=== PATIENT | female | born 1975 | race Caucasian/White ===

== ENCOUNTER 2021-11-24 05:39 | Emergency (ER) | payer BC, OTHER ==
--- OUTSIDE RECORDS SUMMARY | 2021-11-24 05:41 | XMS REPORT | Continuity of Care Document ---
:1975 Author Organization [facility] t Address [address] [place] [address] Dr. Canales [address] [place] [id number] Care Team Providers Name Role Phone Mary Quiñones Attending Clinician Unavailable SARAH Attending Clinician Unavailable Maria D Aleman Attending Clinician [phone] [id number] Attending Clinician Unavailable SARAH Admitting Clinician Unavailable [id number] Admitting Clinician Unavailable Payers Payer Name Policy Type Policy Number Effective Date Expiration Date S ource Problems This patient has no known problems. Allergies, Adverse Reactions, Alerts This patient has no known allergies or adverse reactions. Medications This patient has no known medications. Procedures This patient has no known procedures. Encounters Start End Encounter Admission Attending Care Care Encounter Source Date/Time Date/Time Type Type Clinicians Facility Department ID 2021-05-06 Outpatient YVETTE Quiñones [facility] [id number] [facility] [address] 13:49:02 Mary [id number] [facility] ent Clinics 2020-11-13 2020-11-13 Outpatient JENNINGS_B [facility] [id number] 01:18:00 01:18:00 805 [facility] 2020-11-12 2020-11-12 Outpatient [facility]ENNINGS_B [facility] [id number] [facility] [address] 03:07:00 03:07:00 804 [facility] 2020-11-02 2020-11-02 Outpatient [facility]ENNINGS_B [facility] [address] 12:41:00 12:41:00 725 [facility] 2020-09-28 2020-09-28 Outpatient [facility] [address] 12:33:00 12:33:00 620 [facility] 2020-08-25 2020-08-25 Outpatient [facility] [id number] 01:02:00 01:02:00 517 [facility] 2020-08-19 2020-08-19 Outpatient [facility]ENNINGS_B [facility] [id number] 05:14:00 05:14:00 511 [facility] 2020-08-19 2020-08-19 Outpatient Love, [facility] [id number] 00:00:00 00:00:00 Maria D [id number] 2020-07-29 2020-07-29 Outpatient DICLEMENTE_ [facility] [id number] 06:46:00 06:46:00 M1 503 [facility] 2020-07-29 2020-07-29 Outpatient DICLEMENTE_ [facility] [id number] 06:46:00 06:46:00 M1 510 [facility] Results This patient has no known results.
[2021-11-24] MEDS ORDERED: MORPHINE 4 MG/ML SYR ONE (06:33)
[2021-11-24] MEDS ORDERED: ONDANSETRON 4 MG/2 ML VIAL ONE (06:33)
[2021-11-24] MEDS ORDERED: NA CHLORIDE 0.9% 1,000 ML ONE (06:33)
[2021-11-24 06:53] LABS: Absolute Lymphocytes (CBC) 2.5 K/uL (0.7-4.9); Hematocrit 35.8 % (36.0-45.0); Lymphocytes % 21.7 % (15.3-44.8); MCV 81.9 fL (80-100); MPV 8.2 fL (7.6-11.3); RBC Red Blood Cell Count 4.37 M/uL (3.86-4.86)
[2021-11-24 06:55] LABS: Protime INR 0.97
[2021-11-24 07:08] LABS: ALT/SGPT 23 U/L (12-78); AST/SGOT 12 U/L (15-37); Albumin 3.4 g/dL (3.4-5.0); Alkaline Phosphatase 69 U/L (45-117); BUN Blood Urea Nitrogen 13 mg/dL (7-18); Bicarbonate 26 mmol/L (21-32); Bilirubin Total 0.2 mg/dL (0.2-1.0); Creatine Phosphokinase 62 U/L (26-192); Glomerular Filtration Rate 102 ml/min (=/>90); Glucose Level 109 mg/dL (74-106); Magnesium 1.5 mg/dL (1.8-2.4); NT PRO-BNP 76 pg/mL (<125); Potassium 3.7 mmol/L (3.5-5.1); Protein, Total 7.3 g/dL (6.4-8.2); Sodium Level 137 mmol/L (136-145); Troponin High Sensitivity 3.4 pg/mL (<58.9)
[2021-11-24 07:19] LABS: Bilirubin Direct < 0.1 mg/dL (0-0.2)
--- NOTE | 2021-11-24 07:48 | RAD REPORT ---
EXAM DESCRIPTION: RAD - Chest Single View - 11/24/2021 6:57 am CLINICAL HISTORY: CONGESTION COMPARISON: None TECHNIQUE: AP portable chest image was obtained 11/24/2021 6:57 am . FINDINGS: No focal mass or consolidation. Interstitial markings are accentuated by shallow inspirati on, body habitus and under penetrated film technique affects. A mild interstitial edema or infiltrate could be masked. Heart and vasculature are normal. No measurable pleural effusion and no pneumothorax. No acute bony abnormality seen. No acute aortic findings suspected. IMPRESSION: No focal mass or consolidation. Baseline interstitial pattern and exam limitations could mask early interstitial edema or infiltrate.
--- NOTE | 2021-11-24 07:49 | RAD REPORT ---
EXAM DESCRIPTION: RAD - Humerus Left - 11/24/2021 6:57 am CLINICAL HISTORY: Arm and shoulder pain COMPARISON: None. FINDINGS: No fracture is identified. There is no dislocation or periosteal reaction noted. No forei gn body or other soft tissue abnormality. IMPRESSION: Negative left humerus examination for acute finding. Left shoulder joint degenerative changes are separately detailed.
--- NOTE | 2021-11-24 07:49 | RAD REPORT ---
EXAM DESCRIPTION: RAD - Forearm Left - 11/24/2021 6:57 am CLINICAL HISTORY: PAIN COMPARISON: None. FINDINGS: No fracture is identified. There is no dislocation or periosteal reaction noted. No foreign body or other soft tissue abnormality. IMPRESSION: Negative left forearm examination.
--- NOTE | 2021-11-24 07:49 | RAD REPORT ---
EXAM DESCRIPTION: RAD - Shoulder Left 2 View - 11/24/2021 6:57 am CLINICAL HISTORY: PAIN COMPARISON: No comparisons TECHNIQUE: Internal and external rotation views of the left shoulder were obtained. FINDINGS: There is no fracture or dislocation. Mild inferiorly directed acromion and clavicle spurs are seen at the AC joint. No AC joint separation. Acromial humeral joint space within normal range. N o abnormal soft tissue calcifications. IMPRESSION: Mild left shoulder degenerative change as detailed.
--- NOTE | 2021-11-24 07:50 | RAD REPORT ---
EXAM DESCRIPTION: US - UPPER EXTREMITY VENOUS UNILATE - 11/24/2021 7:32 am CLINICAL HISTORY: Left arm pain and/or swelling COMPARISON: None. TECHNIQUE: Real-time sonographic evaluation of the left upper extremity deep venous systems was perf ormed. FINDINGS: Normal compressibility, flow augmentation, phasic flow and spontaneous flow are identified in the left upper extremity deep venous system. No intraluminal filling defects seen. Internal jugul ar and subclavian veins are normal as well. IMPRESSION: No DVT in the left upper extremity.
[2021-11-24] MEDS ORDERED: DIAZEPAM 5 MG TABLET ONE (07:52)
[2021-11-24] MEDS ORDERED: MORPHINE 2 MG/ML SYR ONE (07:53)
[2021-11-24 07:59] LABS: Urine Blood Negative (Negative); Urine Glucose Negative (Negative); Urine Protein Negative (Negative); Urine Specific Gravity 1.025 (1.005-1.030); Urine pH 5.5 (5.0-7.0)
--- NOTE | 2021-11-24 08:23 | ER ---
Nurse's Notes [facility] Name: Daniela Leonard Age: 46 yrs Sex: Female : 1975 Arrival Date: 11/24/2021 Time: 05:43 Bed 10 Private MD: Diagnosis: Pain in left shoulder Presentation: 11/24 06:01 Chief complaint: Patient states: Pain to left shoulder, radiating down left arm that lp1 began yesterday evening; States "it feels like something is wrapped tight around my arm"; Denies any trauma or falls; States hx of unknown nerve issue. Coronavirus screen: At this time, the client does not indicate any symptoms associated with coronavirus-19. Ebola Screen: No symptoms or risks identified at this time. Initial Sepsis Screen: Does the patient meet any 2 criteria? No. Patient's initial sepsis screen is negative. Does the patient have a suspected source of infection? No. Patient's initial sepsis screen is negative. Risk Assessment: Do you want to hurt yourself or someone else? Patient reports no desire to harm self or others. Onset of symptoms was November 24, 2021. 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 lp1 Historical: - Allergies: 06:05 latanoprost; lp1 06:05 Timolol; lp1 06:05 Combigan; lp1 - Home Meds: 06:05 dorzolamide ophthalmic (eye) [Active]; gabapentin 900 mg BID oral [Active]; metformin lp1 1,000 mg Oral tr24 1 tab 2 times per day [Active]; venlafaxine 225 mg oral tr24 1 tab once daily [Active]; lisinopril 2.5 mg Oral tab 1 tab once daily [Active]; Lamictal 150 mg Oral tab 1 tab once daily [Active]; - PMHx: 06:05 Ocular HTN; Hypertensive disorder; Diabetes mellitus; Anxiety; Depressive disorder; lp1 Nerve Pain; - PSHx: 06:05 Cholecystectomy; Appendectomy; Fallopian tube removal; lp1 - Immunization history:: Adult Immunizations up to date. - Social history:: Smoking status: Patient denies any tobacco usage or history of. Screenin:04 Abuse screen: Denies threats or abuse. Denies injuries from another. Nutritional lp1 screening: No deficits noted. Tuberculosis screening: No symptoms or risk factors identified. Fall Risk None identified. Assessment: 06:03 General: Appears uncomfortable, Behavior is crying, restless. Pain: Complains of pain lp1 in left arm Pain currently is 9 out of 10 on a pain scale. Quality of pain is described as pressure. Neuro: Level of Consciousness is awake, alert, obeys commands, Oriented to person, place, time, situation, Gait is steady, Intact. Cardiovascular: Patient's skin is warm and dry. Respiratory: Respiratory effort is even, unlabored. GI: No signs and/or symptoms were reported involving the gastrointestinal system. : No signs and/or symptoms were reported regarding the genitourinary system. EENT: No signs and/or symptoms were reported regarding the EENT system. Derm: Skin is intact, Skin is dry, Skin is red, Skin temperature is hot Patient reports recent long sun exposure from beach. Musculoskeletal: Range of motion: intact in all extremities. 08:20 Reassessment: Patient appears in no apparent distress at this time. Patient and/or iw family updated on plan of care and expected duration. Pain level reassessed. Patient is alert, oriented x 3, equal unlabored respirations, skin warm/dry/pink. Patient states feeling better. Vital Signs: 06:01 BP 168 / 87; Pulse 101; Resp 18; Temp 98(TE); Pulse Ox 98% on R/A; Weight 124.74 kg lp1 (R); Height 5 ft. 6 in. (167.64 cm); Pain 9/10; 06:01 Body Mass Index 44.39 (124.74 kg, 167.64 cm) lp1 ED Course: 05:43 Patient arrived in ED. bp1 05:52 Lb Rajan MD is Attending Physician. 7 06:01 Emilee Miller, CLARA is Primary Nurse. lp1 06:01 Arm band placed on. lp1 06:03 Triage completed. lp1 06:08 Patient has correct armband on for positive identification. lp1 06:42 Missed attempt(s): 20 gauge in right antecubital area. Inserted saline lock: 22 gauge lp1 in right forearm, using aseptic technique. Blood collected. 06:59 XRAY Chest (1 view) In Process Unspecified. EDMS 06:59 Shoulder Left (2 View) XRAY In Process Unspecified. EDMS 06:59 Humerus Left XRAY In Process Unspecified. EDMS 06:59 Forearm Left XRAY In Process Unspecified. EDMS 07:11 Attending Physician role handed off by Lb Rajan MD ms3 07:11 Jj Magdaleno DO is Attending Physician. ms3 07:29 Primary Nurse role handed off by Emilee Miller, CLARA jl7 07:31 Astrid Alas, CLARA is Primary Nurse. iw 07:34 UPPER EXTREMITY VENOUS UNILATE In Process Unspecified. EDMS 08:01 UDS Sent. em1 08:20 No provider procedures requiring assistance completed. IV discontinued, intact, iw bleeding controlled, No redness/swelling at site. Pressure dressing applied. 08:21 Anson Grey MD is Referral Physician. ms3 Administered Medications: 06:43 Drug: NS 0.9% 1000 ml Route: IV; Rate: 1000 ml; Site: right forearm; lp1 08:00 Follow up: IV Status: Completed infusion iw 06:55 Drug: morphine 4 mg {Note: RASS 0.} Route: IVP; Infused Over: 4 mins; Site: right lp1 forearm; 19:35 Follow up: Response: No adverse reaction; Pain is unchanged, physician notified iw 06:55 Drug: Zofran (Ondansetron) 4 mg Route: IVP; Site: right forearm; lp1 08:00 Follow up: Response: No adverse reaction iw 07:36 CANCELLED (Physician Discretion): morphine 4 mg IVP once over 4 mins ms3 07:56 Drug: morphine 2 mg Route: IVP; Infused Over: 4 mins; Site: right forearm; iw 08:20 Follow up: Response: No adverse reaction; RASS: Restless (+1) iw 07:56 Drug: Valium (diazepam) 5 mg Route: PO; iw 08:25 Follow up: Response: No adverse reaction iw Medication: 06:07 VIS not applicable for this client. lp1 Outcome: 08:22 Discharge ordered by . ms3 08:50 Discharged to home ambulatory, with family. iw 08:50 Condition: good 08:50 Discharge instructions given to patient, family, Instructed on discharge instructions, follow up and referral plans. medication usage, Demonstrated understanding of instructions, follow-up care, medications, Prescriptions given X 2. 08:52 Patient left the ED. iw Signatures: Dispatcher [employer] EDAstrid Gresham, CLARA ELIZABETH iw Cachorro Cabrera em1 Emilee Miller RN RN lp1 Stephany Clarke RN RN jl7 Jj Magdaleno DO DO ms3 Deyanira Quintero Maurice, MD MD mh7
--- NOTE | 2021-11-24 08:23 | EDPHYS ---
Physician Documentation [facility] Name: Daniela Leonard Age: 46 yrs Sex: Female : 1975 Arrival Date: 11/24/2021 Time: 05:43 Bed 10 Private MD: ED Physician Jj Magdaleno HPI: 11/24 06:26 This 46 yrs old Female presents to ER via Ambulatory with complaints of Arm Pain, Hand mh7 Pain. 06:26 The patient or guardian complains of pain, that is acute. The complaints affect the mh7 left shoulder and left arm. Context: The problem was sustained at an unknown location, resulted from unknown cause. Onset: The symptoms/episode began/occurred today, at 00:00. Treatment prior to arrival includes: prescription medications, hydrocodone. Modifying factors: The symptoms are alleviated by nothing. the symptoms are aggravated by movement, touching. Associated signs and symptoms: Pertinent positives: decreased range of motion, erythema, Pertinent negatives: deformity, fever, nausea, numbness, swelling, tingling, vomiting, warmth, weakness. Severity of symptoms: At their worst the symptoms were moderate, earlier today, in the emergency department the symptoms are unchanged. 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 lp1 Historical: - Allergies: 06:05 latanoprost; lp1 06:05 Timolol; lp1 06:05 Combigan; lp1 - Home Meds: 06:05 dorzolamide ophthalmic (eye) [Active]; gabapentin 900 mg BID oral [Active]; metformin lp1 1,000 mg Oral tr24 1 tab 2 times per day [Active]; venlafaxine 225 mg oral tr24 1 tab once daily [Active]; lisinopril 2.5 mg Oral tab 1 tab once daily [Active]; Lamictal 150 mg Oral tab 1 tab once daily [Active]; - PMHx: 06:05 Ocular HTN; Hypertensive disorder; Diabetes mellitus; Anxiety; Depressive disorder; lp1 Nerve Pain; - PSHx: 06:05 Cholecystectomy; Appendectomy; Fallopian tube removal; lp1 - Immunization history:: Adult Immunizations up to date. - Social history:: Smoking status: Patient denies any tobacco usage or history of. ROS: 06:26 Constitutional: Negative for fever, chills, and weight loss, Eyes: Negative for injury, mh7 pain, redness, and discharge, ENT: Negative for injury, pain, and discharge, Neck: Negative for injury, pain, and swelling, Cardiovascular: Negative for chest pain, palpitations, and edema, Respiratory: Negative for shortness of breath, cough, wheezing, and pleuritic chest pain, Abdomen/GI: Negative for abdominal pain, nausea, vomiting, diarrhea, and constipation, Back: Negative for injury and pain, : Negative for injury, bleeding, discharge, and swelling, Neuro: Negative for headache, weakness, numbness, tingling, and seizure, Psych: Negative for depression, anxiety, suicide ideation, homicidal ideation, and hallucinations, Allergy/Immunology: Negative for hives, rash, and allergies, Endocrine: Negative for neck swelling, polydipsia, polyuria, polyphagia, and marked weight changes, Hematologic/Lymphatic: Negative for swollen nodes, abnormal bleeding, and unusual bruising. Exam: 06:26 Head/Face: Normocephalic, atraumatic. Eyes: Pupils equal round and reactive to light, mh7 extra-ocular motions intact. Lids and lashes normal. Conjunctiva and sclera are non-icteric and not injected. Cornea within normal limits. Periorbital areas with no swelling, redness, or edema. Neck: Trachea midline, no thyromegaly or masses palpated, and no cervical lymphadenopathy. Supple, full range of motion without nuchal rigidity, or vertebral point tenderness. No Meningismus. Chest/axilla: Normal chest wall appearance and motion. Nontender with no deformity. No lesions are appreciated. Cardiovascular: Regular rate and rhythm with a normal S1 and S2. No gallops, murmurs, or rubs. Normal PMI, no JVD. No pulse deficits. Respiratory: Lungs have equal breath sounds bilaterally, clear to auscultation and percussion. No rales, rhonchi or wheezes noted. No increased work of breathing, no retractions or nasal flaring. Abdomen/GI: Soft, non-tender, with normal bowel sounds. No distension or tympany. No guarding or rebound. No evidence of tenderness throughout. Back: No spinal tenderness. No costovertebral tenderness. Full range of motion. Neuro: Awake and alert, GCS 15, oriented to person, place, time, and situation. Cranial nerves II-XII grossly intact. Motor strength 5/5 in all extremities. Sensory grossly intact. Cerebellar exam normal. Normal gait. Psych: Awake, alert, with orientation to person, place and time. Behavior, mood, and affect are within normal limits. 06:26 Constitutional: The patient appears in no acute distress, alert, awake, anxious, uncomfortable. 06:26 Musculoskeletal/extremity: Extremities: noted in the left arm and shoulder: erythema, pain, tenderness, ROM: limited active range of motion due to pain, in the left arm, limited passive range of motion due to pain, in the left arm, Circulation is intact in all extremities. Sensation intact. Compartment Syndrome exam of affected extremity: is normal. no numbness, no tingling, no sensation deficit, no palor, no weak pulses, Joints: the left shoulder displays painful range of motion, tenderness, Weight bearing: able to fully bear weight, without difficulty, Tendon exam: specific tendon testing normal through active and passive range of motion DVT Exam: pain, that is moderate, of the left arm, tenderness, that is moderate, of the left arm, erythema, that is moderate, of the left arm, Calves: are non-tender, have equal circumference. 06:26 Skin: erythema, likely due to sunburn to left upper extremity. 07:12 ECG was reviewed by the Attending Physician. ms3 Vital Signs: 06:01 BP 168 / 87; Pulse 101; Resp 18; Temp 98(TE); Pulse Ox 98% on R/A; Weight 124.74 kg lp1 (R); Height 5 ft. 6 in. (167.64 cm); Pain 9/10; 06:01 Body Mass Index 44.39 (124.74 kg, 167.64 cm) lp1 MDM: 07:11 Patient medically screened. ms3 07:44 Transition of care: Care assumed from Lb Rajan MD. ms3 07:45 ED course: L radial pulse 2+/4, Sensation intact, motor intact. ms3 08:16 Data reviewed: vital signs, nurses notes, lab test result(s), EKG, radiologic studies, ms3 and as a result, I will discharge patient. Counseling: I had a detailed discussion with the patient and/or guardian regarding: the historical points, exam findings, and any diagnostic results supporting the discharge/admit diagnosis, lab results, radiology results, the need for outpatient follow up, to return to the emergency department if symptoms worsen or persist or if there are any questions or concerns that arise at home. Special discussion: I discussed with the patient/guardian in detail that at this point there is no indication for admission to the hospital. It is understood, however, that if the symptoms persist or worsen the patient needs to return immediately for re-evaluation. 11/24 06:19 Order name: Basic Metabolic Panel; Complete Time: 07:31 7 11/24 06:19 Order name: CBC with Diff; Complete Time: 07:11 7 11/24 06:19 Order name: LFT's; Complete Time: 07:31 7 11/24 06:19 Order name: Magnesium; Complete Time: 07:31 7 11/24 06:19 Order name: NT PRO-BNP; Complete Time: 07:31 7 11/24 06:19 Order name: PT-INR; Complete Time: 07:11 7 11/24 06:19 Order name: Troponin HS; Complete Time: 07:31 7 11/24 06:19 Order name: XRAY Chest (1 view); Complete Time: 08:07 7 11/24 06:19 Order name: CK; Complete Time: 07:31 7 11/24 06:19 Order name: Shoulder Left (2 View) XRAY; Complete Time: 08:07 7 11/24 06:19 Order name: Humerus Left XRAY; Complete Time: 08:07 7 11/24 06:19 Order name: UDS; Complete Time: 19:30 mh7 11/24 07:59 Order name: Urine Dipstick-Ancillary; Complete Time: 08:07 EDMS 11/24 08:01 Order name: Urine --Ancillary (enter results); Complete Time: 19:30 bd 11/24 06:19 Order name: EKG; Complete Time: 06:24 mh7 11/24 06:19 Order name: Cardiac monitoring; Complete Time: 07:19 7 11/24 06:19 Order name: EKG - Nurse/Tech; Complete Time: 07:19 mh7 11/24 06:19 Order name: IV Saline Lock; Complete Time: 06:56 mh7 11/24 06:19 Order name: Labs collected and sent; Complete Time: 06:56 mh7 11/24 06:19 Order name: O2 Per Protocol; Complete Time: 06:56 [facility] 11/24 06:19 Order name: O2 Sat Monitoring; Complete Time: 06:56 [facility] 11/24 06:19 Order name: Forearm Left XRAY; Complete Time: 08:07 [facility] 11/24 07:16 Order name: UPPER EXTREMITY VENOUS UNILATE; Complete Time: 08:07 EDMS 11/24 06:19 Order name: Urine Dipstick-Ancillary (obtain specimen); Complete Time: 07:57 [facility] 11/24 06:19 Order name: Urine Test (obtain specimen); Complete Time: 08:01 [facility] 11/24 08:20 Order name: Shoulder Immobilizer ms3 EC:12 Rate is 94 beats/min. Rhythm is regular. QRS [place] is Normal. AR interval is normal. QRS ms3 interval is normal. Clinical impression: Normal ECG. Interpreted by me. Reviewed by me. Administered Medications: 06:43 Drug: NS 0.9% 1000 ml Route: IV; Rate: 1000 ml; Site: right forearm; lp1 08:00 Follow up: IV Status: Completed infusion iw 06:55 Drug: morphine 4 mg {Note: RASS 0.} Route: IVP; Infused Over: 4 mins; Site: right lp1 forearm; 19:35 Follow up: Response: No adverse reaction; Pain is unchanged, physician notified iw 06:55 Drug: Zofran (Ondansetron) 4 mg Route: IVP; Site: right forearm; lp1 08:00 Follow up: Response: No adverse reaction iw 07:36 CANCELLED (Physician Discretion): morphine 4 mg IVP once over 4 mins ms3 07:56 Drug: morphine 2 mg Route: IVP; Infused Over: 4 mins; Site: right forearm; iw 08:20 Follow up: Response: No adverse reaction; RASS: Restless (+1) iw 07:56 Drug: Valium (diazepam) 5 mg Route: PO; iw 08:25 Follow up: Response: No adverse reaction iw Disposition Summary: 11/24/21 08:22 Discharge Ordered Location: Home ms3 Condition: Stable ms3 Diagnosis - Pain in left shoulder ms3 Followup: ms3 - With: Anson Grey MD - When: 2 - 3 days - Reason: Recheck today's complaints Discharge Instructions: - Discharge Summary Sheet ms3 - Shoulder Pain, [id number] ms3 Forms: - Medication Reconciliation Form ms3 - Thank You Letter ms3 - Antibiotic Education ms3 - Prescription Opioid Use ms3 Prescriptions: - Tylenol-Codeine #3 300 mg-30 mg Oral - take 1 tablet by ORAL route every 4-6 hours for 3 days; 12 tablet; Refills: 0, ms3 Product Selection Permitted Signatures: Dispatcher [employer] EDMS Astrid Alas RN RN iw Emilee Miller RN RN 1 Jj Magdaleno DO DO ms3 Lb Rajan MD MD mh7 Corrections: (The following items were deleted from the chart) 07:16 07:10 Extremity Venous Uni [email or web address] ordered. EDCA EDCA 07:36 07:32 morphine 4 mg IVP once over 4 mins ordered. ms3 ms3
[2021-11-24 08:35] LABS: Barbiturates NEGATIVE (NEGATIVE); Benzodiazepines NEGATIVE (NEGATIVE); Cocaine NEGATIVE (NEGATIVE); METHAMPHETAM NEGATIVE (NEGATIVE); Methadone NEGATIVE (NEGATIVE); Opiates POSITIVE (NEGATIVE); Phencyclidine NEGATIVE (NEGATIVE); THC Cannibis NEGATIVE (NEGATIVE)
[2021-11-24 09:16] VITALS: BP 168/87; TEMP 98; O2SAT 98
[2021-11-24 09:24] LABS: Urine Specific Gravity/Preg 1.025 (1.005-1.030)
== END 2021-11-24 08:52 | disposition home or self-care (01) ==
LOC: ER 05:39
DX: M25.512 Pain in left shoulder (principal); I10 Essential (primary) hypertension; E11.9 Type 2 diabetes mellitus without complications; F41.9 Anxiety disorder, unspecified; Z88.8 Allergy status to other drugs, medicaments and biological substances
CPT/HCPCS: 85025; 80048; 36415; 83735; 82550; 81025; 85610; 80076; 81003; 84484; 83880; 80307; 71045; 73090; 73060; 73030; 93971; J2270; J7030; J2405